=== PATIENT | male | born 1980 | race Caucasian/White ===

== ENCOUNTER 2017-05-15 13:08 | Inpatient (IN) ==
[2017-05-15 14:43] LABS: BASOPHILS % (AUTO) 0.2 % (0.0-3.0); EOSINOPHILS % (AUTO) 0.2 % (0.0-7.0); HEMATOCRIT 40.1 % (42.0-52.0); HEMOGLOBIN 13.6 g/dl (14.0-18.0); IMMATURE GRANULOCYTE % (AUTO) 0.4 % (0.0-5.0); LYMPHOCYTES % (AUTO) 16.7 (10.0-50.0); MEAN CORPUSCULAR HEMOGLOBIN 29.7 pg (27.0-31.0); MEAN CORPUSCULAR HGB CONC 33.9 (31.8-35.4); MEAN CORPUSCULAR VOLUME 87.6 fl (80.0-94.0); MONOCYTES # (AUTO) 1.1 K/uL (0.4-2.0); MONOCYTES % (AUTO) 8.7 (0-10); NEUTROPHILS # (AUTO) 8.9 K/ul (2.0-6.9); NEUTROPHILS % (AUTO) 73.8; PLATELET COUNT 304 10^3/uL (140-440); RED BLOOD COUNT 4.58 10^6/ul (4.70-6.10); WHITE BLOOD COUNT 12.09 K/ul (4.2-10.2)
[2017-05-15 15:05] LABS: ALBUMIN 3.8 g/dL (3.4-5.0); ALBUMIN/GLOBULIN RATIO 0.93; ANION GAP 13.4; BILIRUBIN,TOTAL 0.78 mg/dL (0.00-1.20); BUN/CREATININE RATIO 9.18; CALCIUM 9.4 mg/dL (8.2-10.2); CREATININE 0.98 mg/dL (0.60-1.10); POTASSIUM 3.4 mmol/L (3.5-5.1); TOTAL PROTEIN 7.9 g/dL (6.4-8.2)
--- NOTE | 2017-05-15 15:10 | CT ---
EXAM: CT right knee without contrast HISTORY: Insect bite and redness. COMPARISON: Left knee x-ray 05/10/2011 TECHNIQUE: Serial axial images of the right knee were obtained without contrast. These were viewed in multiple planes. FINDINGS: The soft tissues demonstrate diffuse subcutaneous fat stranding, most pronounced over the patella. There is a small knee effusion. The musculature is unremarkable. There is scattered dege nerative disease of the right knee with osteophyte formation noted in the medial and lateral compart ments. IMPRESSION: 1. No acute osseous abnormality or displaced fracture. 2. Diffuse subcutaneous inflammation. No focal fluid collection or abscess. 3. Tricompartmental degenerative disease of the right knee with small effusion.
[2017-05-15] MEDS ORDERED: DECADRON 4 MG/ML SDV IM STA (15:43)
--- NOTE | 2017-05-15 15:48 | ED.PDOC ---
General ED Provider: Dr. MARU FRANCOIS Chief Complaint: Bite Stated Complaint: right knee pain and inflammation Time Seen by Physician: 13:10 (was under a house attending tome plumbing yet an sting on his knee ) Mode of Arrival: Wheelchair Information Source: Patient Exam Limitations: No limitations Nursing and Triage Documentation Reviewed and Agree: Yes Musculoskeletal Complaint Exam - Knee Pain Complaint/Exam Mechanism of Injury: Reports: Trauma Onset/Duration: 2 days Symptoms Are: Still present Onset of Pain: Reports: Hours Initial Severity: Moderate Current Severity: Moderate Location: Reports: Discrete Character: Reports: Aching Alleviating: Reports: Rest, Position Aggravating: Reports: None Associated Signs and Symptoms: Reports: Swelling, Redness. Denies: Bruising, Fever, Weakness, Numbness, Tingling Able to Bear Weight: Yes Septic Arthritis Risk Factors: Reports: None Gout Risk Factors: Reports: None Knee Findings: Present: Swelling (see photos) Tenderness: Present: Pre-patellar, Joint, Tibial Tuberosity Shani Test Positive: No Adam Test Positive: No Differential Diagnoses: Cellulitis, Closed Fracture, Sprain, Strain Review of Systems - Review Of Systems Constitutional: Reports: No symptoms Eyes: Reports: No symptoms Ears, Nose, Mouth, Throat: Reports: No symptoms Respiratory: Reports: No symptoms Cardiac: Reports: No symptoms GI: Reports: No symptoms : Reports: No symptoms Musculoskeletal: Reports: Joint pain (right knee see photos) Skin: Reports: No symptoms Neurological: Reports: No symptoms Endocrine: Reports: No symptoms Hematologic/Lymphatic: Reports: No symptoms All Other Systems: Reviewed and Negative Past Medical History - Past Medical History Previously Healthy: Yes Endocrine: Reports: None Cardiovascular: Reports: None Respiratory: Reports: None Hematological: Reports: None Gastrointestinal: Reports: None Genitourinary: Reports: None Neuro/Psych: Reports: None Musculoskeletal: Reports: None Cancer: Reports: None - Surgical History General Surgical History: Reports: None - Family History Family History: Reports: Unknown - Social History Smoking Status: Never smoker Hx Substance Use: No Alcohol Screening: None - Immunizations Tetanus Shot up to Date: (unknown, Possibly 2009) Physical Exam - Physical Exam Appearance: Well-appearing, No pain distress, Well-nourished Eyes: JEFFERY, EOMI, Conjunctiva clear ENT: Ears normal, Nose normal, Oropharynx normal Respiratory: Airway patent, Breath sounds clear, Breath sounds equal, Respirations nonlabored Cardiovascular: RRR, Pulses normal, No rub, No murmur GI/: Soft, Nontender, No masses, Bowel sounds normal, No Organomegaly Musculoskeletal: Edema ( right knee ) Skin: Warm, Dry (cellulitic dorsal apect right knee see photos) Neurological: Sensation intact, Motor intact, Reflexes intact, Cranial nerves intact, Alert, Oriented Psychiatric: Affect appropriate, Mood appropriate Physician Notification - Case Discussed Physician Notified: benito Time of Notification: 15:48 Critical Care Note - Critical Care Note Total Time (mins): 0 Course - Course Hematology/Chemistry: 05/15/17 14:40 05/15/17 14:40 Orders, Labs, Meds: Lab Review 05/15/17 14:40 WBC 12.09 H RBC 4.58 L Hgb 13.6 L Hct 40.1 L MCV 87.6 MCH 29.7 MCHC 33.9 RDW Coeff of Kenny 13.2 Plt Count 304 Immature Gran % (Auto) 0.4 Neut % (Auto) 73.8 Lymph % (Auto) 16.7 [place] % (Auto) 8.7 Eos % (Auto) 0.2 Baso % (Auto) 0.2 Immature Gran # (Auto) 0.1 Neut # 8.9 H Lymph # 2.0 [place] # 1.1 Eos # 0.0 Baso # 0.0 Sodium 139 Potassium 3.4 L Chloride 101 Carbon Dioxide 28 Anion Gap 13.4 BUN 9 Creatinine 0.98 Estimated GFR (MDRD) 88.00 BUN/Creatinine Ratio 9.18 Glucose 92 Lactic Acid 8.0 Calcium 9.4 Total Bilirubin 0.78 AST 13 L ALT 12 Alkaline Phosphatase 79 Total Protein 7.9 Albumin 3.8 Globulin 4.1 Albumin/Globulin Ratio 0.93 Procalcitonin < 0.05 Orders Category Date Time Status BLOOD CULTURE Stat LAB 05/15/17 14:40 Received CBC W/ AUTO DIFF Stat LAB 05/15/17 14:40 Completed COMPREHENSIVE METABOLIC PANEL Stat LAB 05/15/17 14:40 Completed LACTIC ACID Stat LAB 05/15/17 14:40 Completed PROCALCITONIN Stat LAB 05/15/17 14:40 Completed Ampicillin Sodium/Sulbactam Na [Unasyn] 3 gm MEDS 05/15/17 18:00 Ordered 0.9 % Sodium Chloride [Sodium Chloride] 100 ml IV Q6HR Dexamethasone 4 mg/ml Inj [Decadron 4 mg/ml Sdv] MEDS 05/15/17 15:43 Stat 4 mg IM ONCE STA CT KNEE RIGHT WITHOUT CONTRAST Stat RADS 05/15/17 13:56 Completed Medications Generic Name Dose Route Start Last Admin Trade Name Timboq PRN Reason Stop Dose Admin Ampicillin Sodium/Sulbactam 100 mls @ 100 mls/hr 05/15/17 18:00 Sodium 3 gm/ Sodium Chloride IV Q6HR EDWARD Discontinued Medications Generic Name Dose Route Start Last Admin Trade Name Jerri PRN Reason Stop Dose Admin Dexamethasone Sodium Phosphate 4 mg 05/15/17 15:43 Decadron 4 Mg/Ml Sdv IM 05/15/17 15:44 ONCE STA Vital Signs: Temp Pulse Resp BP Pulse Ox 05/15/17 13:10 98.3 F 104 H 20 123/78 98 Departure - Departure Time of Disposition: 15:49 Disposition: ADMITTED INPATIENT Discharge Problem: Cellulitis of right knee Instructions: Cellulitis (ED) Condition: Good Pt referred to PMD for follow-up: No Additional Instructions: Please call your Family Physician as soon as possible to schedule a follow-up appointment. Allergies/Adverse Reactions: Allergies No Known Allergies Allergy (Unverified 05/15/17 13:24) Home Medications: Ambulatory Orders Clonazepam [Klonopin] 2 mg PO TID 05/15/17 Cyclobenzaprine HCl [Flexeril] 10 mg PO TID 05/15/17 Gabapentin [Neurontin] 300 mg PO QID 05/15/17 Hydrocodone/Acetaminophen [Tyler 10-325 Tablet] 1 each PO TID PRN 05/15/17 Disposition Discussed With: Patient
[2017-05-15] MEDS ORDERED: NORCO 10-325 PO PRN (15:54)
[2017-05-15] MEDS ORDERED: UNASYN ONE (16:30)
[2017-05-15] MEDS: DOXYCYCLINE HYCLATE PO SCH ×2 (16:44→20:05)
[2017-05-15] MEDS: UNASYN 3 GM in SODIUM CHLORIDE 100 ML IV SCH ×2 (16:45→19:48)
[2017-05-15] MEDS: SODIUM CHLORIDE 1,000 ML IV SCH (18:44)
[2017-05-15 19:57] VITALS: BMI 22.2
[2017-05-15] MEDS: KLONOPIN PO SCH (20:06)
[2017-05-15] MEDS: NORCO 10-325 PO SCH (20:12)
[2017-05-15] MEDS: NEURONTIN PO SCH (20:12)
[2017-05-15] MEDS ORDERED: NON-FORMULARY MEDICATION (Clonazepam [Klonopin] 2 MG) PO SCH (21:00)
[2017-05-16] MEDS: UNASYN 3 GM in SODIUM CHLORIDE 100 ML IV SCH ×4 (00:24→18:41)
[2017-05-16 04:55] LABS: BASOPHILS % (AUTO) 0.2 % (0.0-3.0); HEMATOCRIT 37.3 % (42.0-52.0); HEMOGLOBIN 12.5 g/dl (14.0-18.0); IMMATURE GRANULOCYTE % (AUTO) 0.4 % (0.0-5.0); LYMPHOCYTES # (AUTO) 2.7 K/uL (0.60-3.4); LYMPHOCYTES % (AUTO) 18.6 (10.0-50.0); MEAN CORPUSCULAR HEMOGLOBIN 29.5 pg (27.0-31.0); MEAN CORPUSCULAR HGB CONC 33.5 (31.8-35.4); MONOCYTES # (AUTO) 1.3 K/uL (0.4-2.0); MONOCYTES % (AUTO) 8.8 (0-10); NEUTROPHILS # (AUTO) 10.3 K/ul (2.0-6.9); PLATELET COUNT 269 10^3/uL (140-440); RED BLOOD COUNT 4.24 10^6/ul (4.70-6.10); WHITE BLOOD COUNT 14.25 K/ul (4.2-10.2)
[2017-05-16 05:24] LABS: ALBUMIN/GLOBULIN RATIO 0.88; ANION GAP 11.8; BILIRUBIN,TOTAL 0.56 mg/dL (0.00-1.20); BUN/CREATININE RATIO 8.33; CALCIUM 8.7 mg/dL (8.2-10.2); CREATININE 0.84 mg/dL (0.60-1.10); POTASSIUM 3.8 mmol/L (3.5-5.1); TOTAL PROTEIN 6.4 g/dL (6.4-8.2)
--- NOTE | 2017-05-16 09:14 | PCM.PROG ---
Attending Provider: [facility]END[facility] DATE [facility] SERV[facility] 05/16/17 SUBJECTIVE: This 36 year old WHITE/ M was hospitalized 05/15/17. The patient was working under a house and had a bite on the right knee; unsure what bit him. This started 2 days ago. The patient came to ER with right knee pain and swelling with drainage. Today the patient states pain and redness is somewhat better. No fever since admission. MRI showed soft tissue infection, no joint involvement, osteoarthritis of right knee. REVIEW OF SYSTEMS: CONSTITUTIONAL: No night sweats. No fatigue, malaise, lethargy. No fever or chills. HEENT: Eyes: No visual changes. No eye pain. No eye discharge. ENT: No runny nose. No epistaxis. No sinus pain. No odynophagia. No congestion. RESPIRATORY: No cough, no congestion. No hemoptysis. CARDIOVASCULAR: No angina symptoms. No CHF symptoms. No atypical chest pain for CAD. No palpitations. No shortness of breath. GASTROINTESTINAL: No abdominal pain. No nausea or vomiting. No diarrhea or constipation. No hematemesis. No hematochezia. GENITOURINARY: No urgency. No frequency. No dysuria. No hematuria. No obstructive symptoms. No discharge. No pain. No significant abnormal bleeding. MUSCULOSKELETAL: Right knee swelling. NEUROLOGICAL: Awake, alert, oriented to time, place and person. No headache. No neck pain. No syncope. No seizures. No dizziness. PSYCHIATRIC: Not anxious. No depression. No suicidal thoughts. No homicidal thoughts. SKIN: Right knee swelling and redness. ENDOCRINE: No unexplained weight loss. No weight gain. HEMATOLOGIC/LYMPHATIC: No anemia. No purpura. No petechiae. No prolonged or excessive bleeding. No palpable lymph nodes. PHYSICAL EXAMINATION: GENERAL: The patient is awake, alert and oriented, lying in bed in no distress. VITAL SIGNS: Temperature 97.7 F, Pulse 74, Respiratory Rate 20, BP 98/63, Pulse Ox 100% HEENT: Head normocephalic, atraumatic. Eyes: Extraocular muscles are intact. Pupils are equal, round and reactive to light and accommodation. Ears: No lesions. Nose appeared normal. Throat: No exudate or erythema. NECK: Supple. No JVD, no carotid bruit. No lymphadenopathy or thyromegaly. LUNGS: Clear to auscultation. Percussion note normal. Chest symmetrical. HEART: S1, S2, no S3. No murmurs. No cyanosis or clubbing. No ascites. Pulses: Dorsalis pedis and posterior tibial pulses +1 to +2 both sides. ABDOMEN: Soft. Non-tender. Bowel sounds active. No CVA tenderness. No mass felt. EXTREMITIES: No edema. Full range of motion of all extremities, equal. NEUROLOGIC: No focal deficit. Cranial nerves II through XII are grossly intact. No headache, no double vision or headache. SKIN: Not dry. Intact. Turgor-normal. LYMPHATIC: No palpable lymph nodes/no lymphedema. MUSCULOSKELETAL: Right knee swelling, erythema, warmth and tenderness to palpation improving per patient. no visible drainage. LAB REVIEW: 05/16/17 04:30 05/16/17 04:30 05/16/17 04:30: WBC 14.25 H, RBC 4.24 L, Hgb 12.5 L, Hct 37.3 L, MCV 88.0, MCH 29.5, MCHC 33.5, RDW Coeff of Kenny 13.2, Plt Count 269, Immature Gran % (Auto) 0.4, Neut % (Auto) 72.0, Lymph % (Auto) 18.6, [place] % (Auto) 8.8, Eos % (Auto) 0.0, Baso % (Auto) 0.2, Immature Gran # (Auto) 0.1, Neut # 10.3 H, Lymph # 2.7, [place] # 1.3, Eos # 0.0, Baso # 0.0, Sodium 139, Potassium 3.8, Chloride 104, Carbon Dioxide 27, Anion Gap 11.8, BUN 7, Creatinine 0.84, Estimated GFR (MDRD) 105.00, BUN/Creatinine Ratio 8.33, Glucose 119 H, Calcium 8.7, Total Bilirubin 0.56, AST 10 L, ALT 9 L, Alkaline Phosphatase 63, Total Protein 6.4, Albumin 3.0 L, Globulin 3.4, Albumin/Globulin Ratio 0.88 ASSESSMENT: 1. Right knee cellulitis PLAN: 1. Bactroban twice a day topically 2. Continue [place] 3. Continue IV antibiotics Plan and coordination of the patient's care discussed in the presence of Insurance Rater and nurse. CONDITION: Stable SCRIBED BY: LEILANI FERRARO, Research Contracts Supervisor scribed while in presence of service performed by Dr. SHIV [facility]SAVANNAH MAYS APRN on 05/16/17 ([id number])
[2017-05-16] MEDS: KLONOPIN PO SCH ×3 (09:16→21:20)
[2017-05-16] MEDS: DOXYCYCLINE HYCLATE PO SCH ×2 (09:16→21:20)
[2017-05-16] MEDS: BACTROBAN TP SCH ×2 (09:16→21:19)
[2017-05-16] MEDS: NORCO 10-325 PO SCH ×3 (09:16→21:20)
[2017-05-16] MEDS: NEURONTIN PO SCH ×4 (09:16→21:21)
--- NOTE | 2017-05-16 11:05 | HP ---
DATE OF SERVICE: 05/15/17 REASON FOR HOSPITALIZATION: Right knee pain and inflammation, duration 5 days. HISTORY OF PRESENT ILLNESS: 36-year-old white male was seen in the emergency room because of right knee pain and inflammation with redness. The patient gives history of having insect bite with sting type of sensation on his knee, which became swollen according to him. The emergency room note was written that the duration is 2 days but according to the patient he was stung nearly 4 to 5 days ago. It started getting red and swollen in the past 48 to 72 hours. On further questioning, the patient says he was on his knees attending to the plumbing under the house; the possibility of skin rubbing against the ground and getting infected is there. REVIEW OF SYSTEMS: CONSTITUTIONAL: No night sweats. No fatigue, no weakness. No fever or chills. HEENT: Eyes: No visual changes. No eye pain. No eye discharge. ENT: No runny nose. No epistaxis. No sinus pain. No sore throat. No odynophagia. No ear pain. No congestion. RESPIRATORY: No cough, no congestion. No hemoptysis. CARDIOVASCULAR: No angina symptoms. No CHF symptoms. No atypical chest pain for CAD. No palpitations. No shortness of breath. No PND, no orthopnea. GASTROINTESTINAL: Normal appetite. No abdominal pain. No nausea or vomiting. No diarrhea or constipation. No hematemesis. No hematochezia. GENITOURINARY: No urgency. No frequency. No dysuria. No hematuria. No obstructive symptoms. No discharge. No pain. No significant abnormal bleeding. MUSCULOSKELETAL: Right knee pain, mild to moderate with redness. NEUROLOGICAL: No headache. No neck pain. No syncope. No seizures. No dizziness. PSYCHIATRIC: Not anxious. No depression. No suicidal thoughts. No homicidal thoughts. SKIN: No rash. No lesions. No wounds. ENDOCRINE: No unexplained weight loss. No weight gain. HEMATOLOGIC/LYMPHATIC: No anemia. No purpura. No petechiae. No prolonged or excessive bleeding. No palpable lymph nodes. PERSONAL/FAMILY/SOCIAL HISTORY: The patient lives by himself, never a smoker, no history of alcohol abuse or drug abuse. The patient is unemployed. PAST MEDICAL/SURGICAL PROBLEMS: 1. Generalized osteoarthritis for which he has been going to Pain Management. MEDICATIONS: 1. Klonopin 2 mg p.o. t.i.d. 2. Flexeril 10 mg p.o. t.i.d. 3. Neurontin 300 mg p.o. q.i.d. 4. Hydrocodone 10/325 mg p.o. t.i.d. ALLERGIES: NKDA PHYSICAL EXAMINATION: GENERAL: The patient is oriented to time, place and person. VITAL SIGNS: Temperature 98.3, pulse 100, respiratory rate 20, BP 123/78, pulse ox 98%. HEENT: Head normocephalic, atraumatic. Eyes: Extraocular muscles are intact. Pupils are equal, round and reactive to light and accommodation. Ears: No lesions. Nose appeared normal. Throat: No exudate or erythema. NECK: Supple. No JVD, no carotid bruit. No lymphadenopathy or thyromegaly. LUNGS: Clear to auscultation. Percussion note normal. Chest symmetrical. HEART: S1, S2, no S3. No murmurs. No cyanosis or clubbing. No ascites. Pulses: Dorsalis pedis and posterior tibial pulses +1 to +2 both sides. ABDOMEN: Soft. Nontender. Bowel sounds active. No CVA tenderness. No mass felt. EXTREMITIES: No edema. Full range of motion of all extremities, equal. NEUROLOGIC: No focal deficit. Cranial nerves II through XII are grossly intact. No headache, no double vision or headache. SKIN: Not dry. Intact. Turgor - normal. LYMPHATIC: No palpable lymph nodes/no lymphedema. MUSCULOSKELETAL: Right knee is anteriorly swollen. The patient has some superficial inflammation surrounding the knee joint anteriorly with possibility of mild cellulitis going medially inferiorly around the right knee toward the leg; area maybe 3 to 4 inches surrounding that part. There is no pus formation. There is no discharge. LABS: Hemoglobin 15.6, hematocrit 40, WBC 12,000 with normal differential. Creatinine 0.9, BUN 9, normal liver profile. Procalcitonin less than 0.05. CT scan of the right knee showed no acute osseous abnormality or displaced fracture, diffuse subcutaneous inflammation noted. No focal fluid collection or abscess noted. Tricompartmental DJD noted of the right knee, small effusion. ASSESSMENT: 1. RIGHT KNEE AREA INFLAMMATION WITH POSSIBILITY OF INSECT BITE 2. DJD SPINE UNDER PAIN MANAGEMENT PLAN: 1. IV fluids 2. IV antibiotics 3. Ampicillin with Sulbactam 3 mg q.6hr 4. Doxycycline 100 q.12 5. Continue Clonazepam 6. [place] 7. 1 cc Decadron CONDITION: Stable. TIME SPENT: More than 70 minutes. MTDD
[2017-05-16] MEDS: SODIUM CHLORIDE 1,000 ML IV SCH (12:23)
[2017-05-16] MEDS ORDERED: DECADRON 4 MG/ML SDV IM STA (18:17)
[2017-05-16] MEDS ORDERED: DECADRON 4 MG/ML SDV ONE (18:32)
[2017-05-16 21:58] VITALS: BP 121/73; TEMP 98.2
--- NOTE | 2017-05-19 15:09 | CONS ---
DATE OF CONSULTATION: 05/16/17 REASON FOR CONSULTATION: HISTORY OF PRESENT ILLNESS: This is a 36 year old male who was admitted to Dr. Carpenter's service yesterday. The problem was swelling and redness and pain of the right knee. The patient, five days prior to presentation to the emergency room, was underneath his trailer trying to fix the plumbing. The patient since then had a small area on the anterior knee that was dark. It began to swell more two day prior to the emergency room visit with pain and was quite painful that he made an incision and claimed to have had some drainage which had black particles. He also mentioned that it had drained spontaneously and the drainage was consisting of some dark particles also. The patient at the emergency room had a CT scan of the knee showing some diffuse subcutaneous inflammation and no focal fluid collection or abscess. No acute osseous abnormality or fracture. Tricompartmental degenerative disease of the right knee with small effusion. CT scan was done and was signed out 15:10. It was dictated at 15:02. CBC showed mild leukocytosis and increasing from yesterday. Neutrophils also had increased slightly from 8.9 to 10.3. WBC 12,090 to 14,250. Temperature remained normal, but the patient is taking Hydrocodone with Tylenol. The patient is going to Pain Management for injections of the right knee about every 3 months. He claimed that he had played football and he had lost cartilage on the knee. His medications are prescribed by Pain Management. The patient on examination about 5:30 p.m. is alert, responsive and not dyspneic , nor tachypneic. The right knee is swollen and red. The redness had extended to the medical thigh about a third up on the thigh. The anterior knee is fluctuant. I don't know how fluctuant it was yesterday. There is no obvious site of drainage and there is a small area that is rounded about 2 mm in size more or less at the center of the knee. Pedal pulses are present. ASSESSMENT: 1. CELLULITIS RIGHT KNEE WITH POSSIBLE ABSCESS FORMATION PLAN: 1. Ultrasound of the knee, but not available at this time to this facility, as well as an MRI. 2. I will try to do a repeat CT to see if it will show a collection of fluid, abscess. 3. I have discussed the case with Dr. Carpenter and felt that maybe he would refer him and transfer him to another facility. While I am reviewing his case, the nurse came in and told me that the patient refused the CBC and SED rate, as well as repeat CT scan of the knee and that he would sign out and go to the emergency room again. He would do that if nobody would incise his knee. I have not informed him about the idea of transferring him to another facility where there is an orthopedic service. Further dictation will be made pending upon the progress. ADDITIONAL NOTES: AMBAR Mauricio came back to the dictating room and told me that the patient does not want to see me. He would see Dr. Carpenter. Luly mentioned that I had treated a grandparent of his and that he does not want to see me for whatever reason. CLAUDIA
--- NOTE | 2017-05-29 12:38 | PN ---
DATE OF SERVICE: 05/16/17 SUBJECTIVE: The 86 year old white male again seen this evening. The patient was seen by Dr. Shepherd. Dr. Shepherd wanted a CT scan of the knee to be repeated and indicated that he may need to be transferred incase if the infection is in the knee joint itself otherwise he could attempt to do I&D. For some reason the patient declined any further work up or consultation by Dr. Shepherd according to Dr. Shepherd. I talked to the patient and he said that there was some problem related to Dr. Shepherd care given to one of the family members. In any case the patient is not willing to undergo anymore testing. I declined any blood tests, declined CT scan of the knee and indicated that he would want to sign out and I explained to him that the best course for him would be to stay in the hospital and Dr. Shepherd manage his care, I'm not a surgeon and I need his help and there is no other surgeon in the hospital except for Dr. Shepherd. He doesn't want to hear anything about that. He said that once his antibiotic infusion is over he would leave and explained the complication that could occur with not getting proper care for the infection. The patient is intelligent. So far the patient does not have any fever or chills. His pain is more of less under control, localized pain in the right knee anteriorly. The patient is on warm compresses three times a day. He is on Unasyn and Doxycycline. The rise of the redness or cellulitis has increased and in fact it is more localized anteriorly. Fluctuant swelling anterior particularly there is no restriction to the motion of the right knee. I talked to Dr. Raines and explained the case, explained to the patient in presents of AMBAR Lainez. I gave an option that Dr. Raines is willing to transfer him adelita to [facility], one of the [facility]. There he would be admitted under Dr. Raines and he would ask for a surgical consult and continue on antibiotics and take care of his possible abscess on the right knee. Initially the patient consented and signed the papers for the transfer and I went back again to confirm that that is what he wants to do and that is what my recommendation is as the only surgeon in the hospital he has declined to see that is Dr. Shepherd. When I went back again the patient changed his mind and he said that he has already drained his abscess and a lot of puss came out and he is feeling better. He would like to go home and I told him in that case he will have to sign out against medical advise because I advise him to stay in the hospital and get transfer for further care under Dr. Raines to admitted under Dr. Raines in one of the [facility] with surgical consultation. The patient is oriented to time, place and person, he is intelligent and again Fatou was present with me. I had already explained to him about the complication that could occur from neglecting to take care of this present existing problem that he has. He verbalized understanding. Mr. Yahir Hinton signed out AMA. CONDITION: Stable. TIME SPENT: More than 30 minutes. Plan and coordination of the patient's care discussed in the presence of nurse. CLAUDIA
--- NOTE | 2017-05-29 12:54 | PN ---
05/15/17: Level 5 05/16/17: Followup, extensive. Time spent more than 2 hours. MTDD
--- NOTE | 2017-07-01 11:51 | AMA ---
DATE OF SERVICE: 05/16/17 HISTORY OF PRESENT ILLNESS/HOSPITAL COURSE: The 86 year old white male again seen this evening. The patient was seen by Dr. Shepherd. Dr. Shepherd wanted a CT scan of the knee to be repeated and indicated that he may need to be transferred in case the infection is in the knee joint itself otherwise he could attempt to do I&D. For some reason, the patient declined any further work up or consultation by Dr. Shepherd according to Dr. Shepherd. I talked to the patient and he said that there was some problem related to Dr. Shepherd's care given to one of the family members. In any case, the patient is not willing to undergo anymore testing. He declined any blood tests, declined CT scan of the knee and indicated that he would want to sign out. I explained to him that the best course for him would be to stay in the hospital and Dr. Shepherd manage his care, I'm not a surgeon and I need his help and there is no other surgeon in the hospital except for Dr. Shepherd. He doesn't want to hear anything about that. He said that once his antibiotic infusion is over he would leave and I explained the complication that could occur with not getting proper care for the infection. The patient is intelligent. So far, the patient does not have any fever or chills. His pain is more or less under control, localized pain in the right knee anteriorly. The patient is on warm compresses three times a day. He is on Unasyn and Doxycycline. The rise of the redness or cellulitis has increased and in fact it is more localized anteriorly. Fluctuant swelling anterior, particularly there is no restriction to the motion of the right knee. I talked to Dr. Raines and explained the case. I explained to the patient in the presence of AMBAR Lainez. I gave the option that Dr. Raines is willing to transfer him tonight to [facility], one of the [facility]. There he would be admitted under Dr. Raines and he would ask for a surgical consult and continue on antibiotics and take care of his possible abscess on the right knee. Initially, the patient consented and signed the papers for the transfer and I went back again to confirm that that is what he wants to do and that is what my recommendation is as the only surgeon in the hospital he has declined to see; that is Dr. Shepherd. When I went back again, the patient changed his mind and he said that he has already drained his abscess and a lot of pus came out and he is feeling better. He would like to go home and I told him in that case he will have to sign out against medical advise (AMA) because I advise him to stay in the hospital and get transfer for further care under Dr. Raines, to admitted under Dr. Raines in one of the [facility] with surgical consultation. The patient is oriented to time, place and person, he is intelligent and again Fatou was present with me. I had already explained to him about the complication that could occur from neglecting to take care of this present existing problem that he has. He verbalized understanding. Mr. Yahir Hinton signed out AMA. CONDITION: Stable. MTDD
== END 2017-05-16 21:51 | disposition left against medical advice (07) | DRG 603 ==
LOC: ED 13:08 → MEDSURG B 16:11
PROVIDERS: ADMIT Internal Medicine; ATTEND Internal Medicine
DX: L03.115 Cellulitis of right lower limb (principal); S81.051A Open bite, right knee, initial encounter; L02.415 Cutaneous abscess of right lower limb; M25.561 Pain in right knee; Z79.899 Other long term (current) drug therapy
CPT/HCPCS: 36415; 80053; 83605; 84145; 85025; 87040; 87070; 87186; 96365; 96372; 99223; 99233; 99284

== ENCOUNTER 2017-07-09 13:39 | Emergency (ER) ==
[2017-07-09 13:46] VITALS: BP 131/80; TEMP 98.4; BMI 25.7
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
== END 2017-07-09 16:32 | disposition home or self-care (01) ==
LOC: ED 13:39
DX: S30.0XXA Contusion of lower back and pelvis, initial encounter (principal); M54.2 Cervicalgia; V89.2XXA Person injured in unspecified motor-vehicle accident, traffic, initial encounter; F17.220 Nicotine dependence, chewing tobacco, uncomplicated
CPT/HCPCS: 99283

== ENCOUNTER 2017-12-04 12:37 | Emergency (ER) ==
[2017-12-04 12:38] VITALS: BMI 25.7
[2017-12-04 12:42] VITALS: BP 162/91; TEMP 98.7
--- NOTE | 2017-12-04 13:17 | ED.PDOC ---
General ED Provider: Dr. FORTINO GUEVARA Chief Complaint: Non-specific Complaint Mode of Arrival: Walk-In Information Source: Patient Sepsis Protocol: For patient's 13 years and over: Temp is 96.8 and below OR 101 and greater Pulse >90 BPM Resp >20/minute Acutely Altered Mental Status Are patient's symptoms suggestive of a new infection, such as: -Pneumonia -Skin, Soft Tissue -Endocarditis -UTI -Bone, Joint Infection -Implantable Device -Acute Abdominal Infection -Wound Infection -Meningitis -Blood Stream Catheter Infection -Unknown Past Medical History - Past Medical History Previously Healthy: Yes Endocrine: Reports: None Cardiovascular: Reports: None Respiratory: Reports: None Hematological: Reports: None Gastrointestinal: Reports: None Genitourinary: Reports: None Neuro/Psych: Reports: None Musculoskeletal: Reports: None Cancer: Reports: None - Surgical History General Surgical History: Reports: None - Family History Family History: Reports: Unknown - Social History Smoking Status: Never smoker, Chews tobacco Hx Substance Use: No Alcohol Screening: None - Immunizations Tetanus Shot up to Date: No Course - Course Orders, Labs, Meds: Orders Category Date Time Status LUMBAR SPINE, 2 OR 3 VIEWS Stat RADS 12/04/17 13:16 Ordered RIBS, UNILATERAL RIGHT Stat RADS 12/04/17 13:14 Ordered SCAPULA, RIGHT Stat RADS 12/04/17 13:14 Ordered Vital Signs: Temp Pulse Resp BP Pulse Ox 12/04/17 12:38 98.7 F 98 H 18 162/91 H 100 Departure - Departure Allergies/Adverse Reactions: Allergies No Known Allergies Allergy (Unverified 12/04/17 12:42) Home Medications: Ambulatory Orders Clonazepam [Klonopin] 2 mg PO TID 05/15/17 Gabapentin [Neurontin] 300 mg PO QID 05/15/17
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
== END 2017-12-04 16:15 | disposition left against medical advice (07) ==
LOC: ED 12:37
DX: T18.9XXA Foreign body of alimentary tract, part unspecified, initial encounter (principal); Z72.0 Tobacco use
CPT/HCPCS: 99284

== ENCOUNTER 2019-02-02 15:28 | Emergency (ER) | payer OTHER ==
[2019-02-02 15:36] VITALS: BP 144/88; TEMP 99.5; BMI 27.3
[2019-02-02] MEDS ORDERED: VISTARIL INJ IM STA (18:34)
--- NOTE | 2019-02-02 18:36 | ED.PDOC ---
General ED Provider: Dr. DIANE SHAW Chief Complaint: Non-specific Complaint Stated Complaint: Hands burning. [facility] brings pt in suspected Meth Abuse(high on Meth). Very active-stated feels like the skin on his arms and hands are burning. He noted redness to hands and face today--states did not notice until took meth--admits to taking meth on friday--noted the redness next day--has burning sensation --shot up meth in rt arm--is alert but has periods where unable to remain focused on condition. NO OBVIOUS PHYSICAL changes to billat upper extremities/. Esperanza active and fidgety. Will not stay in room. Time Seen by Physician: 15:50 Mode of Arrival: Walk-In Information Source: Patient, Family Exam Limitations: Clinical condition, Altered mental status Nursing and Triage Documentation Reviewed and Agree: Yes Does patient meet sepsis criteria?: No System Inflammatory Response Syndrome: Not Applicable Sepsis Protocol: For patient's 13 years and over: Temp is 96.8 and below OR 101 and greater Pulse >90 BPM Resp >20/minute Acutely Altered Mental Status Are patient's symptoms suggestive of a new infection, such as: -Pneumonia -Skin, Soft Tissue -Endocarditis -UTI -Bone, Joint Infection -Implantable Device -Acute Abdominal Infection -Wound Infection -Meningitis -Blood Stream Catheter Infection -Unknown Psychological Complaint Exam - Substance Abuse/Use Complaint/Exam Patient Complains Of Substance Abuse Of: Other (Methamphetamine) Patient Complains Of Substance Withdrawal Of: Other Onset/Duration: 24-48 hrs Timing: Intermittent, Binge use Initial Severity: Moderate Current Severity: Moderate Character: Present: Manic, Anxious Aggravating: Reports: Recent stress Alleviating: Reports: None Associated Signs And Symptoms: Reports: Confused, Hallucinating, Paranoid behavior, Social withdrawal, Palpitations Related History: Denies: Suicidal thoughts, Suicidal plan, Suicidal gestures, Homicidal thoughts, Homicidal plan, Homicidal gestures, Prior attempts, Prior psych counseling Completed Suicide Risk Factors: None Patient Accompanied By: Police Patient In Custody Of Police: No Social Withdrawal Present: No Social Isolation Present: No Prior Suicide Attempt: No Injury From Prior Suicide Attempt: No (Unknowm) Patient Uncooperative For Exam: No Mood: Present: Paranoid, Manic, Anxious Appearance: Present: Clean Thought Process: Present: Flight of ideas Insight: Present: Poor Memory: Intact Judgement: Impaired Danger To Others: Yes (possibly) Patient Medically Stable For: Psych evaluation, Transfer Differential Diagnoses: Drug Abuse Review of Systems - Review Of Systems Constitutional: Reports: No symptoms Eyes: Reports: No symptoms Ears, Nose, Mouth, Throat: Reports: No symptoms Respiratory: Reports: No symptoms Cardiac: Reports: No symptoms GI: Reports: No symptoms : Reports: No symptoms Musculoskeletal: Reports: No symptoms Skin: Reports: No symptoms, Other (burning sensation ) Neurological: Reports: No symptoms Endocrine: Reports: No symptoms Hematologic/Lymphatic: Reports: No symptoms All Other Systems: Reviewed and Negative Past Medical History - Past Medical History Previously Healthy: Yes Endocrine: Reports: None Cardiovascular: Reports: None Respiratory: Reports: None Hematological: Reports: None Gastrointestinal: Reports: None Genitourinary: Reports: None Neuro/Psych: Reports: None Musculoskeletal: Reports: None Cancer: Reports: None - Surgical History General Surgical History: Reports: None - Family History Family History: Reports: Unknown - Social History Smoking Status: Never smoker, Chews tobacco Hx Substance Use: Yes (meth) Alcohol Screening: None Physical Exam - Physical Exam Appearance: Well-appearing, No pain distress, Well-nourished Ill-appearing: Mild Pain Distress: Mild Eyes: JEFFERY, EOMI, Conjunctiva clear ENT: Ears normal, Nose normal, Oropharynx normal Respiratory: Airway patent, Breath sounds clear, Breath sounds equal, Respirations nonlabored Cardiovascular: RRR, Pulses normal, No rub, No murmur GI/: Soft, Nontender, No masses, Bowel sounds normal, No Organomegaly Musculoskeletal: Normal strength, ROM intact, No edema, No calf tenderness Skin: Warm, Dry, Normal color (slight erythemas forearm) Neurological: Sensation intact, Motor intact, Reflexes intact, Cranial nerves intact, Alert, Oriented Psychiatric: Affect appropriate, Mood appropriate Critical Care Note - Critical Care Note Total Time (mins): 0 Course - Course Hematology/Chemistry: 02/02/19 18:48 02/02/19 18:48 Orders, Labs, Meds: Lab Review 02/02/19 02/02/19 02/02/19 18:48 18:48 18:48 WBC 6.41 RBC 4.31 L Hgb 13.1 L Hct 38.1 L MCV 88.4 MCH 30.4 MCHC 34.4 RDW Coeff of Kenny 12.9 Plt Count 232 Immature Gran % (Auto) 0.3 Neut % (Auto) 69.0 Lymph % (Auto) 22.2 Sharkey % (Auto) 8.0 Eos % (Auto) 0.2 Baso % (Auto) 0.3 Immature Gran # (Auto) 0.0 Neut # (Auto) 4.4 Lymph # (Auto) 1.4 Sharkey # (Auto) 0.5 Eos # (Auto) 0.0 Baso # (Auto) 0.0 Sodium 141.2 Potassium 3.52 Chloride 102.8 Carbon Dioxide 24.9 Anion Gap 17.02 BUN 15.8 Creatinine 0.76 Estimated GFR (MDRD) 116.00 BUN/Creatinine Ratio 20.78 Glucose 113.2 H Lactic Acid 0.96 Calcium 9.09 Total Bilirubin 0.78 AST 47.9 ALT 44.4 Alkaline Phosphatase 48.9 Total Protein 7.73 Albumin 4.49 Globulin 3.24 Albumin/Globulin Ratio 1.38 Orders Category Date Time Status EKG-(ED ONLY) Stat CARDIO 02/02/19 18:34 Completed CBC W/ AUTO DIFF Stat LAB 02/02/19 18:48 Completed CMP [COMPREHENSIVE METABOLIC PANEL] Stat LAB 02/02/19 18:48 Completed LACTIC ACID Stat LAB 02/02/19 18:48 Completed Diphenhydramine HCl [Benadryl] MEDS 02/02/19 18:52 Discontinued 50 mg PO ONCE STA Hydroxyzine HCl [Vistaril Inj] MEDS 02/02/19 18:34 Discontinued 25 mg IM ONCE STA Medications Discontinued Medications Generic Name Dose Route Start Last Admin Trade Name Freq PRN Reason Stop Dose Admin Diphenhydramine HCl 50 mg 02/02/19 18:52 Benadryl PO 02/02/19 18:53 ONCE STA Hydroxyzine HCl 25 mg 02/02/19 18:34 Vistaril Inj IM 02/02/19 18:35 ONCE STA Vital Signs: Temp Pulse Resp BP Pulse Ox 02/02/19 15:29 99.5 F 125 H 20 144/88 H 98 Departure - Departure Time of Disposition: 19:30 Disposition: AMA Discharge Problem: Methamphetamine abuse Instructions: Methamphetamine Abuse (ED) Condition: Fair Pt referred to PMD for follow-up: No IPMP verified?: No Additional Instructions: Instructed on counseling and attempts to get help Patient left AMA Allergies/Adverse Reactions: Allergies No Known Allergies Allergy (Verified 02/02/19 15:38) Home Medications: Ambulatory Orders 1 [No Reported Medications] 02/02/19 Disposition Discussed With: Patient
[2019-02-02] MEDS ORDERED: BENADRYL PO STA (18:52)
== END 2019-02-02 19:33 | disposition left against medical advice (07) ==
LOC: ED 15:28
DX: F15.10 Other stimulant abuse, uncomplicated (principal); R20.8 Other disturbances of skin sensation; Z72.0 Tobacco use
CPT/HCPCS: 36415; 80053; 83605; 85025; 93005; 93010; 99283